=== PATIENT | female | born 1995 | race African-American/Black ===

== ENCOUNTER 2021-01-06 22:31 | Emergency (ER) | payer OTHER ==
[~2021-01-06] VITALS: Ht 160 cm; Wt 119.3 kg
--- NOTE | 2021-01-06 23:58 | REPVR ---
PROCEDURE INFORMATION: Exam: XR Left Hand Exam date and time: 01/06/2021 11:15 PM Age: 25 years old Clinical indication: Pain; Hand and wrist; Left; Additional info: Pain and swelling wrist TECHNIQUE: Imaging protocol: XR Left hand. Views: 3 or more views. COMPARISON: No relevant prior studies available. FINDINGS: Bones/joints: Question of minimal chip or avulsion from the dorsum of the carpus, possibly triquetrum. Soft tissues: Normal. IMPRESSION: 1. Question of minimal chip or avulsion fracture from the dorsum of the carpus, possibly triquetrum. 2. Otherwise negative left hand. Electronically signed by: Keven Moon On 01/06/2021 23:58:03 PM
[2021-01-07] MEDS ORDERED: KETOROLAC 60MG 2ML VIAL IM ONE (03:55)
[2021-01-07] MEDS ORDERED: KETO10TAB PO ×2 (03:57→03:58)
[2021-01-07] MEDS ORDERED: NORCO, ANEXSIA 5/325MG TABLET (HYDROcodone/ACETAMINOPHEN) PO ONE (05:10)
[2021-01-07 05:32] VITALS: BP 158/75
[2021-01-07] MEDS ORDERED: NORCO 5/325MG TABLET (BULK FOR ED) PO ONE (05:40)
== END 2021-01-07 06:05 | disposition home or self-care (01) ==
LOC: M ED 22:31
DX: S62.102A Fracture of unspecified carpal bone, left wrist, initial encounter for closed fracture (principal); X58.XXXA Exposure to other specified factors, initial encounter; Y92.89 Other specified places as the place of occurrence of the external cause
CPT/HCPCS: 73130; 84702; 96372; 99284; J1885

== ENCOUNTER 2022-05-06 14:24 | Emergency (ER) | payer OTHER ==
[~2022-05-06] VITALS: Ht 160 cm; Wt 119.2 kg
[~2022-05-06 14:24] MED LIST: KETO10TAB PO
[2022-05-06 14:25] VITALS: BP 137/80
== END 2022-05-06 17:44 | disposition left against medical advice (07) ==
LOC: M ED 14:24
DX: Z53.21 Procedure and treatment not carried out due to patient leaving prior to being seen by health care provider (principal)